=== PATIENT | female | born 1950 | race Caucasian/White ===

== ENCOUNTER 2017-02-02 11:49 | Outpatient (CLI) | payer OTHER, MEDICARE ==
[~2017-02-02 11:49] MED LIST: LEVO200T43 PO
[2017-02-02 12:14] LABS: BASOPHILS % (AUTO) 0.4 % (0-1); EOSINOPHILS # (AUTO) 0.1 X10'3 (0-0.9); EOSINOPHILS % (AUTO) 1.2 % (0-6); HEMATOCRIT 44.8 % (35.0-45.0); HEMOGLOBIN 15.1 g/dl (12.0-16.0); LYMPHOCYTES # (AUTO) 2.5 X10'3 (1.1-4.8); LYMPHOCYTES % (AUTO) 26.8 % (21-51); MEAN CORPUSCULAR HEMOGLOBIN 30.9 PG (27.0-31.0); MEAN CORPUSCULAR HGB CONC 33.8 % (33.0-36.5); MEAN CORPUSCULAR VOLUME 91.5 FL (78-98); MEAN PLATELET VOLUME 7.4 FL (7.4-10.4); MONOCYTES # (AUTO) 0.4 X10'3 (0-0.9); MONOCYTES % (AUTO) 4.3 % (2-12); NEUTROPHILS # (AUTO) 6.3 X10'3 (1.8-7.7); NEUTROPHILS % (AUTO) 67.3 % (42-75); PLATELET COUNT 296 X10'3 (140-440); RED BLOOD COUNT 4.89 X10'6 (4.20-5.60); WHITE BLOOD COUNT 9.3 X10'3 (4.5-11.0)
[2017-02-02 12:18] LABS: CLARITY,URINE CLEAR (Clear); COLOR,URINE YELLOW (Yellow); GLUCOSE, URINE NEGATIVE (Neg); KETONES,URINE NEGATIVE (Neg); LEUKOCYTE ESTERASE ,URINE NEGATIVE (Neg); NITRITES, URINE NEGATIVE (Neg); OCCULT BLOOD,URINE NEGATIVE (Neg); PH,URINE 6.5 (4.8-8.0); PROTEIN,URINE NEGATIVE (Neg); UROBILINOGEN,URINE 0.2 E.U/dL (0.2-1.0)
[2017-02-02 12:23] LABS: ALBUMIN 3.4 G/DL (3.4-5.0); ANION GAP 6 (8-16); BLOOD UREA NITROGEN 12 MG/DL (7-18); CALCIUM 8.8 MG/DL (8.5-10.1); CHLORIDE 107 MMOL/L (99-107); CREATININE 0.86 MG/DL (0.40-0.90); GLUCOSE 119 MG/DL (70-104); POTASSIUM 4.3 MMOL/L (3.5-5.1); SODIUM 141 MMOL/L (135-145); TOTAL CARBON DIOXIDE 28.1 MMOL/L (24-32); eGFR 66 ML/MIN
[2017-02-02 12:27] LABS: UA COLLECTION TYPE CLN CATCH MIDSTREAM
[2017-02-02 12:38] LABS: PARTIAL THROMBOPLASTIN TIME 28 SECONDS (22-32); PROTHROMBIN TIME 10.3 SECONDS (9.0-12.0)
== END 2017-02-02 23:59 | disposition home or self-care (01) ==
LOC: LAB 11:49
PROVIDERS: ATTEND Internal Medicine Interventional Cardiology
DX: Z01.810 Encounter for preprocedural cardiovascular examination (principal); I44.1 Atrioventricular block, second degree; E07.9 Disorder of thyroid, unspecified; R06.02 Shortness of breath; R00.1 Bradycardia, unspecified; J45.909 Unspecified asthma, uncomplicated; F17.200 Nicotine dependence, unspecified, uncomplicated
CPT/HCPCS: 36415; 80048; 81003; 85025; 85610; 85730

== ENCOUNTER 2017-06-14 05:26 | Day surgery (SDC) | payer MEDICARE, OTHER ==
[2017-06-13 13:23] LABS: BASOPHILS % (AUTO) 0.4 % (0-1); EOSINOPHILS # (AUTO) 0.1 X10'3 (0-0.9); EOSINOPHILS % (AUTO) 1.4 % (0-6); MEAN CORPUSCULAR HEMOGLOBIN 31.4 PG (27.0-31.0); MEAN CORPUSCULAR HGB CONC 35.6 % (33.0-36.5); MEAN CORPUSCULAR VOLUME 88.1 FL (78-98); MEAN PLATELET VOLUME 7.4 FL (7.4-10.4); MONOCYTES # (AUTO) 0.5 X10'3 (0-0.9); MONOCYTES % (AUTO) 5.1 % (2-12); NEUTROPHILS # (AUTO) 6.9 X10'3 (1.8-7.7); NEUTROPHILS % (AUTO) 65.1 % (42-75); PRE OP HEMATOCRIT 41.2 % (35.0-45.0); PRE OP HEMOGLOBIN 14.7 g/dL (12.0-16.0); PRE OP PLATELET COUNT 315 X10'3 (140-440); RED BLOOD COUNT 4.67 X10'6 (4.20-5.60)
[2017-06-13 14:15] LABS: ALBUMIN 3.3 G/DL (3.4-5.0); ALBUMIN/GLOBULIN RATIO 0.8 (1.1-1.5); ALKALINE PHOSPHATASE 126 IU/L (46-116); BLOOD UREA NITROGEN 12 MG/DL (7-18); BUN/CREATININE RATIO 15.8 (6.6-38.0); CALCIUM 9.1 MG/DL (8.5-10.1); CHLORIDE 104 MMOL/L (99-107); CREATININE 0.76 MG/DL (0.40-0.90); PRE OP ALT 24 U/L (30-65); PRE OP ANION GAP 10 (8-16); PRE OP AST 14 U/L (10-37); PRE OP BILIRUB, TOTAL 0.7 MG/DL (0.0-1.0); PRE OP GLUCOSE 103 MG/DL (70-104); PRE OP POTASSIUM 3.5 MMOL/L (3.4-5.1); PRE OP SODIUM 140 MMOL/L (135-145); TOTAL CARBON DIOXIDE 25.9 MMOL/L (24-32); TOTAL PROTEIN 7.3 G/DL (6.4-8.2); eGFR 76 ML/MIN
[2017-06-14] VITALS (9 sets, daily range): BP systolic 90–123; BP diastolic 55–76
[~2017-06-14] VITALS: Ht 166.4 cm; Wt 122.2 kg
[~2017-06-14 05:26] MED LIST changes: +AMLO10TA13 PO; +HYDR12.5 PO; +LEVO200T PO; -LEVO200T43 PO; +ROSU5TAB18 PO; +ringers solution, lacted 1,000 ML IV SCH
[2017-06-14] MEDS ORDERED: Cefazolin 2GM/100ML NS IVPB IV ONE (05:30)
[2017-06-14] MEDS ORDERED: famotidine 20mg tablet PO ONE (05:30)
[2017-06-14] MEDS ORDERED: LIDOcaine 1% (10mg/ml) 2ml vial ONE (05:48)
[2017-06-14] MEDS ORDERED: BUPIVAcaine/PF 2.5 mg/ml (0.25%) 30ml vial ONE (06:54)
[2017-06-14] MEDS ORDERED: epiNEPHrine 1 mg/ml inj ONE (07:13)
[2017-06-14] MEDS ORDERED: ketorolac trometh. 30mg/ml inj. ONE (07:13)
[2017-06-14] MEDS ORDERED: LIDOcaine 1% 30ml preserv. free vial ONE (07:14)
[2017-06-14] MEDS ORDERED: BUPIVAcaine 0.5% inj/PF 30 ml vial ONE (07:14)
[2017-06-14] MEDS ORDERED: MIDAZolam 1mg/ml 10ml vial ONE (07:15)
[2017-06-14] MEDS ORDERED: fentaNYL/PF 50MCG/1 ML 2ML syringe ONE (07:15)
[2017-06-14] MEDS ORDERED: LIDOcaine 2% (20mg/ml) 5ml vial ONE (07:16)
[2017-06-14] MEDS ORDERED: propofol inj 20 ML IV ONE ×2 (07:16)
[2017-06-14] MEDS ORDERED: ringers solution, lacted 1,000 ML IV SCH (07:43)
[2017-06-14] MEDS ORDERED: HYDROmorphone inj. 0.5 MG/0.5 ML DISP.SYRIN IV PRN ×2 (07:45)
[2017-06-14] MEDS ORDERED: hydrALAZINE 20mg/ml inj. IV PRN (07:45)
[2017-06-14] MEDS ORDERED: ondansetron/PF 4mg/2ml inj IV PRN (07:45)
[2017-06-14] MEDS ORDERED: labetalol 5mg/ml 20ml inj. IV PRN (07:45)
[2017-06-14] MEDS ORDERED: fentaNYL/PF 50MCG/1 ML 2ML syringe IV PRN ×2 (07:45)
[2017-06-14] MEDS ORDERED: HYDROcodone/acetaminophen 10/325mg tab PO PRN (08:20)
== END 2017-06-14 09:30 | disposition home or self-care (01) ==
LOC: PAS 05:26
PROVIDERS: ATTEND Orthopaedic Surgery
DX: S83.241A Other tear of medial meniscus, current injury, right knee, initial encounter (principal); M22.41 Chondromalacia patellae, right knee; M17.11 Unilateral primary osteoarthritis, right knee; G47.33 Obstructive sleep apnea (adult) (pediatric); I10 Essential (primary) hypertension; E03.9 Hypothyroidism, unspecified; E66.01 Morbid (severe) obesity due to excess calories; Z79.2 Long term (current) use of antibiotics; Z79.891 Long term (current) use of opiate analgesic; Z95.0 Presence of cardiac pacemaker; Z90.89 Acquired absence of other organs; Z87.891 Personal history of nicotine dependence; Z68.41 Body mass index [BMI] 40.0-44.9, adult; Z98.890 Other specified postprocedural states; Z79.899 Other long term (current) drug therapy; X58.XXXA Exposure to other specified factors, initial encounter; Y93.89 Activity, other specified; Y92.89 Other specified places as the place of occurrence of the external cause; Y99.8 Other external cause status
CPT/HCPCS: 29881; 36415; 80053; 85025; A6449; J0171; J0690; J1885; J2001; J2250; J2704; J3010; J3490; J7030; J7120

== ENCOUNTER 2019-02-03 11:32 | Emergency (ER) | payer MEDICARE ==
[~2019-02-03] VITALS: Ht 165.1 cm; Wt 125.0 kg
[~2019-02-03 11:32] MED LIST changes: +ROSU5TAB12 PO; -ROSU5TAB18 PO; -ringers solution, lacted 1,000 ML IV SCH
[2019-02-03 11:45] VITALS: BP 164/97
[2019-02-03] MEDS ORDERED: ipratropium/albuterol 3ml nebule NEB ONE (13:30)
--- NOTE | 2019-02-03 14:04 | NUR ---
RT at bedside for tx as ordered.
== END 2019-02-03 15:12 | disposition home or self-care (01) ==
LOC: ER 11:33
DX: J06.9 Acute upper respiratory infection, unspecified (principal); Z79.899 Other long term (current) drug therapy
CPT/HCPCS: 71046; 93005; 94640; 94760; 99283

== ENCOUNTER 2022-01-11 16:41 | Emergency (ER) | payer MEDICARE ==
[~2022-01-11] VITALS: Ht 165.1 cm; Wt 113.0 kg
[2022-01-11 17:14] LABS: BASOPHILS % (AUTO) 0.5 % (0-1); EOSINOPHILS % (AUTO) 0.2 % (0-6); HEMATOCRIT 44.1 % (35.0-45.0); HEMOGLOBIN 14.7 g/dl (12.0-16.0); LYMPHOCYTES # (AUTO) 0.7 X10'3 (1.1-4.8); LYMPHOCYTES % (AUTO) 10.1 % (21-51); MEAN CORPUSCULAR HEMOGLOBIN 31.2 PG (27.0-31.0); MEAN CORPUSCULAR HGB CONC 33.4 g/dL (33.0-36.5); MEAN CORPUSCULAR VOLUME 93.5 FL (78-98); MEAN PLATELET VOLUME 7.1 FL (7.4-10.4); MONOCYTES # (AUTO) 0.9 X10'3 (0-0.9); MONOCYTES % (AUTO) 12.1 % (2-12); NEUTROPHILS # (AUTO) 5.7 X10'3 (1.8-7.7); NEUTROPHILS % (AUTO) 77.1 % (42-75); PLATELET COUNT 278 X10'3 (140-440); RED BLOOD COUNT 4.71 X10'6 (4.20-5.60); RED CELL DISTRIBUTION WIDTH 13.3 % (11.5-14.5); WHITE BLOOD COUNT 7.3 X10'3 (4.5-11.0)
[2022-01-11 17:24] LABS: ALANINE AMINOTRANSFERASE 17 U/L (12-78); ALBUMIN 3.7 G/DL (3.4-5.0); ALBUMIN/GLOBULIN RATIO 0.9 (1.1-1.5); ALKALINE PHOSPHATASE 94 IU/L (46-116); ANION GAP 9 (8-16); ASPARTATE AMINO TRANSFERASE 18 U/L (10-37); BLOOD UREA NITROGEN 14 MG/DL (7-18); BUN/CREATININE RATIO 13.3 (6.6-38.0); CALCIUM 8.9 MG/DL (8.5-10.1); CHLORIDE 99 MMOL/L (99-107); CREATININE 1.05 MG/DL (0.40-0.90); GLUCOSE 107 MG/DL (70-104); POTASSIUM 3.6 MMOL/L (3.5-5.1); SODIUM 134 MMOL/L (135-145); TOTAL CARBON DIOXIDE 25.7 MMOL/L (24-32); TOTAL PROTEIN 7.7 G/DL (6.4-8.2); eGFR 52 ML/MIN
--- NOTE | 2022-01-11 19:35 | NUR ---
PT CALLED BACK FROM [facility] FOR REASSESMNE T. PT REEPORTS - " I FEEL MUCH BETTER "
[2022-01-11] MEDS ORDERED: methylPREDNISolone sod succ 125mg/2ml vial IV ONE (20:05)
[2022-01-11] MEDS ORDERED: ipratropium/albuterol 3ml nebule NEB ONE (20:05)
[2022-01-11] MEDS ORDERED: ALBU6.7H14 INH (20:44)
[2022-01-11] MEDS ORDERED: PRED20TA PO (20:44)
[2022-01-11 21:00] VITALS: BP 138/97
== END 2022-01-11 21:02 | disposition home or self-care (01) ==
LOC: ER 16:42
DX: J45.901 Unspecified asthma with (acute) exacerbation (principal); J06.9 Acute upper respiratory infection, unspecified; J45.909 Unspecified asthma, uncomplicated
CPT/HCPCS: 36415; 71045; 80053; 83880; 84484; 85025; 93005; 94640; 96374; 99285; J2930; 94760

== ENCOUNTER 2024-04-14 07:41 | Inpatient (IN) | payer MEDICARE ==
[~2024-04-14] VITALS: Ht 162.6 cm; Wt 112.7 kg
[2024-04-14] VITALS (10 sets, daily range): BP systolic 96–135; BP diastolic 67–82; PULSE 69–82; RESP 18–24; TEMP 97.7–99.4; O2SAT 90–95
[~2024-04-14 07:41] MED LIST changes: +ALBU6.7H14 INH; -ROSU5TAB12 PO; +ROSU5TAB51 PO
[2024-04-14] MEDS ORDERED: albuterol 2.5 MG/3 ML nebule CONTNEB PRN ×2 (07:45→09:50)
[2024-04-14] MEDS: magnesium sulf-water 2g/50mL 50 ML IV ONE (08:04)
[2024-04-14] MEDS: methylPREDNISolone sod succ/PF 40mg inj. IV SCH (08:04)
[2024-04-14 08:10] LABS: BASOPHILS % (AUTO) 0.5 % (0-1); EOSINOPHILS % (AUTO) 0.1 % (0-6); HEMATOCRIT 46.3 % (35.0-45.0); HEMOGLOBIN 15.6 g/dl (12.0-16.0); LYMPHOCYTES # (AUTO) 1.6 X10'3 (1.1-4.8); LYMPHOCYTES % (AUTO) 25.1 % (21-51); MEAN CORPUSCULAR HEMOGLOBIN 31.9 PG (27.0-31.0); MEAN CORPUSCULAR HGB CONC 33.7 g/dL (33.0-36.5); MEAN CORPUSCULAR VOLUME 94.6 FL (78-98); MEAN PLATELET VOLUME 7.4 FL (7.4-10.4); MONOCYTES # (AUTO) 0.6 X10'3 (0-0.9); MONOCYTES % (AUTO) 9.4 % (2-12); NEUTROPHILS # (AUTO) 4.3 X10'3 (1.8-7.7); NEUTROPHILS % (AUTO) 64.9 % (42-75); PLATELET COUNT 272 X10'3 (140-440); RED BLOOD COUNT 4.89 X10'6 (4.20-5.60); RED CELL DISTRIBUTION WIDTH 14.3 % (11.5-14.5); WHITE BLOOD COUNT 6.6 X10'3 (4.5-11.0)
[2024-04-14 08:26] LABS: ALANINE AMINOTRANSFERASE 12 U/L (12-78); ALBUMIN 3.8 G/DL (3.4-5.0); ALKALINE PHOSPHATASE 113 IU/L (46-116); ANION GAP 10 (8-16); ASPARTATE AMINO TRANSFERASE 13 U/L (10-37); BILIRUBIN,TOTAL 0.8 MG/DL (0.1-1.0); BLOOD UREA NITROGEN 9 MG/DL (7-18); BUN/CREATININE RATIO 9.6 (10.0-20.0); CALCIUM 9.3 MG/DL (8.5-10.1); CHLORIDE 107 MMOL/L (99-107); CREATININE 0.94 MG/DL (0.40-0.90); GLUCOSE 105 MG/DL (70-104); MAGNESIUM 2.1 MG/DL (1.5-2.4); POTASSIUM 3.8 MMOL/L (3.5-5.1); SODIUM 144 MMOL/L (135-145); TOTAL CARBON DIOXIDE 27.2 MMOL/L (24-32); TOTAL PROTEIN 7.7 G/DL (6.4-8.2); eCRCL 47 ML/MIN; eGFR 58 ML/MIN
[2024-04-14] MEDS ORDERED: HYDR12.55 PO (13:00)
[2024-04-14] MEDS ORDERED: SIMV-342 PO (13:00)
[2024-04-14] MEDS ORDERED: LEVO100T PO ×2 (13:00)
[2024-04-14] MEDS ORDERED: METO-395 PO (13:00)
[2024-04-14] MEDS ORDERED: AMLO5TAB5 PO (13:00)
[2024-04-14] MEDS ORDERED: magnesium sulf-water 4G/100mL 100 ML IV PRN (13:15)
[2024-04-14] MEDS ORDERED: potassium Cl 20 mEq SR tablet PO PRN ×2 (13:15)
[2024-04-14] MEDS ORDERED: ondansetron/PF 4mg/2ml inj IV PRN (13:15)
[2024-04-14] MEDS ORDERED: potassium Cl 40MEQ/1/2NS 520ml 520 ML IV PRN (13:15)
[2024-04-14] MEDS ORDERED: mag hydrox/Alum hydrox/simeth 30ml oral suspension PO PRN (13:15)
[2024-04-14] MEDS ORDERED: magnesium Cl slow-release 64mg tablet PO PRN (13:15)
[2024-04-14] MEDS ORDERED: magnesium sulf-water 2g/50mL 50 ML IV PRN (13:15)
[2024-04-14] MEDS: nicotine 21mg patch - 24 hr TD SCH (13:48)
[2024-04-14] MEDS: furosemide 40mg/4ml inj IV SCH (13:48)
[2024-04-14] MEDS ORDERED: furosemide 40mg/4ml inj IV SCH ×2 (14:20→14:30)
[2024-04-14 14:22] LABS: MAGNESIUM 2.2 MG/DL (1.5-2.4); PHOSPHORUS 3.3 MG/DL (2.3-4.5)
[2024-04-14] MEDS: ipratropium/albuterol 3ml nebule NEB SCH (15:44)
[2024-04-14] MEDS ORDERED: ipratropium/albuterol 3ml nebule NEB SCH (16:00)
[2024-04-14] MEDS: azithromycin 250mg tablet PO SCH (16:07)
[2024-04-14 17:15] LABS: BILIRUBIN,URINE NEGATIVE (Neg); CLARITY,URINE CLEAR (Clear); COLOR,URINE YELLOW (Yellow); GLUCOSE, URINE NEGATIVE (Neg); KETONES,URINE NEGATIVE (Neg); LEUKOCYTE ESTERASE ,URINE NEGATIVE (Neg); NITRITES, URINE NEGATIVE (Neg); OCCULT BLOOD,URINE TRACE-INTACT (Neg); PH,URINE 5.5 (4.8-8.0); PROTEIN,URINE NEGATIVE (Neg); UA COLLECTION TYPE CLN CATCH MIDSTREAM; UROBILINOGEN,URINE 0.2 E.U/dL (0.2-1.0)
[2024-04-14 17:22] LABS: BACTERIA,URINE NONE SEEN /HPF (Neg); WBC,URINE 0-4 /HPF (0-4)
[2024-04-14 17:23] LABS: MUCUS STRANDS FEW /LPF (Neg); SQUAMOUS EPITHELIAL CELL,UR FEW /LPF (FEW)
[2024-04-14] MEDS: benzonatate 100mg capsule PO PRN (18:14)
[2024-04-14] MEDS: K and/or MAG REPLACEMENT MC SCH (19:01)
[2024-04-14] MEDS: Melatonin 3mg tablet PO PRN (19:45)
[2024-04-15] VITALS (15 sets, daily range): BP systolic 106–129; BP diastolic 70–76; PULSE 59–79; RESP 18–22; TEMP 97.8–97.9; O2SAT 91–96
[2024-04-15 05:34] LABS: BASOPHILS % (AUTO) 0.2 % (0-1); EOSINOPHILS % (AUTO) 0 % (0-6); HEMATOCRIT 43.6 % (35.0-45.0); HEMOGLOBIN 14.7 g/dl (12.0-16.0); LYMPHOCYTES # (AUTO) 1.1 X10'3 (1.1-4.8); LYMPHOCYTES % (AUTO) 19.1 % (21-51); MEAN CORPUSCULAR HEMOGLOBIN 31.7 PG (27.0-31.0); MEAN CORPUSCULAR HGB CONC 33.8 g/dL (33.0-36.5); MEAN CORPUSCULAR VOLUME 93.8 FL (78-98); MEAN PLATELET VOLUME 7.8 FL (7.4-10.4); MONOCYTES # (AUTO) 0.6 X10'3 (0-0.9); MONOCYTES % (AUTO) 9.9 % (2-12); NEUTROPHILS # (AUTO) 4.1 X10'3 (1.8-7.7); NEUTROPHILS % (AUTO) 70.8 % (42-75); PLATELET COUNT 270 X10'3 (140-440); RED BLOOD COUNT 4.65 X10'6 (4.20-5.60); RED CELL DISTRIBUTION WIDTH 14.3 % (11.5-14.5); WHITE BLOOD COUNT 5.7 X10'3 (4.5-11.0)
[2024-04-15 05:43] LABS: ALBUMIN 3.7 G/DL (3.4-5.0); ANION GAP 11 (8-16); BLOOD UREA NITROGEN 22 MG/DL (7-18); BUN/CREATININE RATIO 22.2 (10.0-20.0); CALCIUM 9.3 MG/DL (8.5-10.1); CHLORIDE 103 MMOL/L (99-107); CREATININE 0.99 MG/DL (0.40-0.90); GLUCOSE 126 MG/DL (70-104); POTASSIUM 3.6 MMOL/L (3.5-5.1); SODIUM 141 MMOL/L (135-145); TOTAL CARBON DIOXIDE 27.2 MMOL/L (24-32); eCRCL 43 ML/MIN; eGFR 55 ML/MIN
[2024-04-15] MEDS: furosemide 40mg/4ml inj IV SCH ×2 (09:10→20:33)
[2024-04-15] MEDS: methylPREDNISolone sod succ 125mg/2ml vial IV SCH (09:11)
[2024-04-15] MEDS: enoxaparin 40mg/0.4ml syringe SUBCUT SCH (09:13)
[2024-04-15] MEDS: ipratropium/albuterol 3ml nebule NEB PRN (12:09)
[2024-04-15] MEDS: acetaminophen 325mg tablet PO PRN ×2 (13:07→20:32)
[2024-04-15] MEDS ORDERED: temazepam 15mg capsule PO PRN (16:35)
[2024-04-15] MEDS: magnesium hydroxide 30ml (MOM) UD suspension PO PRN (16:41)
[2024-04-15] MEDS: methylPREDNISolone sod succ/PF 40mg inj. IV SCH (16:42)
[2024-04-15] MEDS: docusate sod 100mg capsule PO SCH (20:33)
[2024-04-16] VITALS (14 sets, daily range): BP systolic 117–156; BP diastolic 70–87; PULSE 66–78; RESP 13–24; TEMP 96.9–98.4; O2SAT 93–96
[2024-04-16 06:02] LABS: BASOPHILS % (AUTO) 0.1 % (0-1); EOSINOPHILS % (AUTO) 0 % (0-6); HEMATOCRIT 47.1 % (35.0-45.0); HEMOGLOBIN 15.6 g/dl (12.0-16.0); LYMPHOCYTES # (AUTO) 0.7 X10'3 (1.1-4.8); MEAN CORPUSCULAR HEMOGLOBIN 30.9 PG (27.0-31.0); MEAN CORPUSCULAR VOLUME 93.5 FL (78-98); MEAN PLATELET VOLUME 8.1 FL (7.4-10.4); MONOCYTES # (AUTO) 0.2 X10'3 (0-0.9); MONOCYTES % (AUTO) 3.4 % (2-12); NEUTROPHILS # (AUTO) 5.6 X10'3 (1.8-7.7); NEUTROPHILS % (AUTO) 85.5 % (42-75); PLATELET COUNT 286 X10'3 (140-440); RED BLOOD COUNT 5.04 X10'6 (4.20-5.60); RED CELL DISTRIBUTION WIDTH 14.4 % (11.5-14.5); WHITE BLOOD COUNT 6.6 X10'3 (4.5-11.0)
[2024-04-16 06:19] LABS: ALBUMIN 3.8 G/DL (3.4-5.0); ANION GAP 11 (8-16); BLOOD UREA NITROGEN 29 MG/DL (7-18); BUN/CREATININE RATIO 25.4 (10.0-20.0); CALCIUM 9.4 MG/DL (8.5-10.1); CHLORIDE 101 MMOL/L (99-107); CREATININE 1.14 MG/DL (0.40-0.90); GLUCOSE 142 MG/DL (70-104); POTASSIUM 3.7 MMOL/L (3.5-5.1); SODIUM 140 MMOL/L (135-145); TOTAL CARBON DIOXIDE 28.4 MMOL/L (24-32); eCRCL 37 ML/MIN; eGFR 47 ML/MIN
[2024-04-16] MEDS: simvastatin 20mg tablet PO SCH (08:53)
[2024-04-16] MEDS: levoTHYROXINE 100mcg tablet PO SCH (08:53)
[2024-04-16] MEDS: metoprolol succinate 25mg (24-HOUR) SR. Tablet PO SCH (20:12)
[2024-04-17] VITALS (9 sets, daily range): BP systolic 124–131; BP diastolic 83–89; PULSE 66–76; RESP 16–20; TEMP 97.1–97.7; O2SAT 91–94
[2024-04-17 04:57] LABS: BASOPHILS % (AUTO) 0.1 % (0-1); EOSINOPHILS % (AUTO) 0 % (0-6); HEMATOCRIT 48.5 % (35.0-45.0); HEMOGLOBIN 16.3 g/dl (12.0-16.0); MEAN CORPUSCULAR HEMOGLOBIN 31.5 PG (27.0-31.0); MEAN CORPUSCULAR HGB CONC 33.7 g/dL (33.0-36.5); MEAN CORPUSCULAR VOLUME 93.5 FL (78-98); MEAN PLATELET VOLUME 7.8 FL (7.4-10.4); MONOCYTES # (AUTO) 0.4 X10'3 (0-0.9); MONOCYTES % (AUTO) 3.9 % (2-12); NEUTROPHILS # (AUTO) 9.4 X10'3 (1.8-7.7); PLATELET COUNT 305 X10'3 (140-440); RED BLOOD COUNT 5.18 X10'6 (4.20-5.60); RED CELL DISTRIBUTION WIDTH 14.3 % (11.5-14.5); WHITE BLOOD COUNT 10.8 X10'3 (4.5-11.0)
[2024-04-17 05:21] LABS: ALBUMIN 3.8 G/DL (3.4-5.0); ANION GAP 7 (8-16); BLOOD UREA NITROGEN 32 MG/DL (7-18); CALCIUM 9.5 MG/DL (8.5-10.1); CHLORIDE 102 MMOL/L (99-107); CREATININE 1.28 MG/DL (0.40-0.90); GLUCOSE 135 MG/DL (70-104); POTASSIUM 3.9 MMOL/L (3.5-5.1); SODIUM 141 MMOL/L (135-145); eCRCL 33 ML/MIN; eGFR 41 ML/MIN
[2024-04-17] MEDS: HYDROchlorothiazide 12.5mg capsule PO SCH (08:30)
[2024-04-17] MEDS: amLODIPine 5mg tablet PO SCH (08:31)
[2024-04-17] MEDS: methylPREDNISolone sod succ 125mg/2ml vial IV SCH (08:39)
[2024-04-17] MEDS: furosemide 40mg tablet PO SCH (12:04)
[2024-04-17] MEDS ORDERED: TEMA15CA5 PO (14:27)
[2024-04-17] MEDS ORDERED: FURO40TA4 PO (14:27)
[2024-04-17] MEDS ORDERED: NICO-687 TD (14:27)
[2024-04-17] MEDS ORDERED: UMEC1DIS INH (14:27)
[2024-04-17] MEDS ORDERED: IPRA3AMP9 NEB (14:27)
[2024-04-17] MEDS ORDERED: PRE1T PO (14:27)
[2024-04-22] MEDS ORDERED: levoTHYROXINE 100mcg tablet PO SCH (08:00)
== END 2024-04-17 16:15 | DRG 175 ==
LOC: ER 07:42 → ED HOLD 10:17 → SUR 3N 11:12
PROVIDERS: ADMIT Internal Medicine; ATTEND Internal Medicine
PROC: 5A09357 Assistance with Respiratory Ventilation, Less than 24 Consecutive Hours, Continuous Positive Airway Pressure (ICD-10-PCS; principal; 2024-04-14)
PROC: 5A09357 Assistance with Respiratory Ventilation, Less than 24 Consecutive Hours, Continuous Positive Airway Pressure (ICD-10-PCS; 2024-04-15)
PROC: 5A09357 Assistance with Respiratory Ventilation, Less than 24 Consecutive Hours, Continuous Positive Airway Pressure (ICD-10-PCS; 2024-04-16)
PROC: 5A09357 Assistance with Respiratory Ventilation, Less than 24 Consecutive Hours, Continuous Positive Airway Pressure (ICD-10-PCS; 2024-04-17)
DX: I26.09 Other pulmonary embolism with acute cor pulmonale (principal); J96.01 Acute respiratory failure with hypoxia; J44.1 Chronic obstructive pulmonary disease with (acute) exacerbation; Z68.41 Body mass index [BMI] 40.0-44.9, adult; G47.30 Sleep apnea, unspecified; E66.01 Morbid (severe) obesity due to excess calories; Z20.822 Contact with and (suspected) exposure to COVID-19; E03.9 Hypothyroidism, unspecified; I10 Essential (primary) hypertension; E78.5 Hyperlipidemia, unspecified; Z87.891 Personal history of nicotine dependence; Z95.0 Presence of cardiac pacemaker; Z79.899 Other long term (current) drug therapy
CPT/HCPCS: 36415; 71045; 80048; 80053; 81001; 83735; 83880; 84100; 84484; 85025; 87081; 87502; 87503; 87811; 93005; 93306; 94640; 94664; 94760; 96365; 96375; 99285; A4615; A4620; G0378; J1650; J1940; J2919